=== PATIENT | male | born 1975 | race Caucasian/White ===

== ENCOUNTER 2025-01-04 22:39 | Inpatient (IN) | payer OTHER, SELFPAY ==
[2025-01-04 13:05] VITALS: BP 106/83
[2025-01-04 13:30] LABS: Hematocrit 44.3 % (39.0-52.0); Hemoglobin 15.0 g/dL (13.0-18.0); Mean Corp Hgb Conc. 33.9 g/dL (33.0-37.0); Mean Corpuscular Volume 81.0 fL (80.0-94.0); Nucleated Red Blood Cells % 0 % (-); Platelet Count 155 10^3/uL (130-400); Red Cell Dist. Width 12.3 % (11.5-14.5)
[2025-01-04 13:57] LABS: ALT (SGPT) 19 U/L (0-50); AST (SGOT) 24 U/L (17-59); Albumin 3.8 g/dl (3.5-5.0); Alkaline Phosphatase 119 U/L (38-126); Blood Urea Nitrogen 16 mg/dl (9-20); Calcium 9.1 mg/dl (8.4-10.2); Carbon Dioxide 29 mmol/L (22-30); Chloride 98 mmol/L (98-107); Glucose 104 mg/dl (70-99); Potassium 4.1 mmol/L (3.5-5.1); Sodium 131 mmol/L (135-145); Total Protein 6.7 g/dl (6.3-8.2); eGFR > 60.00
[2025-01-04 19:26] VITALS: BMI 25.7
--- NOTE | 2025-01-04 19:28 | ED.GENMED ---
History of Present Illness
General
Chief Complaint: Skin Problem
Source: patient
Exam Limitations: none
Time Seen by Provider: 01/04/25 18:11
Nursing documentation reviewed up to this point in time: agreed with
History of Present Illness
History of Present Illness:
Patient to ED with complaint of pain, redness, swelling to RLE. Symptoms started on Saturday. Now notes erythema is extending up into thigh. Reports chills. Did not take temp. No history of trauma. No prior history of same. [place] self to ED
for eval.
Past History
Past History
ED Past Medical History: None
ED Past Surgical History: None
Social History
Tobacco: Vaping
Personal: Single
Living: with family
Employment: Employed
Review of Systems
Review of Systems
Allergies reviewed?: Yes
All Other Systems: ROS reviewed and negative except as documented in HPI and ROS
Constitutional: Reports no symptoms
EENT: Reports no symptoms
Respiratory: Reports no symptoms
Cardiac: Reports no symptoms
ABD/GI: Reports no symptoms
: Reports no symptoms
Musculoskeletal: Reports other (erythema swellling, pain RLE )
Skin: Reports other (erythema, swelling, pain RLE)
Neurological: Reports no symptoms
Psychiatric: Reports no symptoms
Phy Exam
General Physical Exam
General Presentation: mild distress
General age: appears stated age
General Skin: warm and dry
General Habitus: normal
Cardiovascular Exam
Cardiovascular Exam: regular rate/rhythm
Pulmonary Exam
Pulmonary Exam: lungs clear and no respiratory distress
Gastrointestinal Exam
Gastrointestinal Exam: normal bowel sounds, non tender, soft and no organomegaly
Musculoskeletal Exam
Musculoskeletal Exam: full ROM and neuro vasc intact
Skin Exam
Skin Exam: warm/dry and other (erythema RLE ankle to knee. Now with steaking right thigh into groin,)
Psychiatric Exam
Psychiatric Exam: normal mood/affect
Course
Orders/Labs/Results
Orders:
Orders
01/04/25 13:10
Case Management Consult ONCE
Case Management Consult: Other
Requested By:: NURSING
Comment: Pt is currently homeless and living in his car. Pt no longer feels safe with this arrangement.
01/04/25 13:12
Complete Blood Count/With Diff Urgent
Comprehensive Metabolic Panel Urgent
01/04/25 Dinner
Regular
At Your Request: Full Participation
Does patient need a safe tray?: No
01/04/25 18:19
US Periph Venous LOWER Ext RT Urgent
Comment:
Reason For Exam: redness swelling pain
01/04/25 19:24
Vancomycin [Vancocin] 2,000 mg 0.9% Sodium Chloride 500 ml [Nss] 500 ml IV NOW
01/04/25 22:18
Admit/Transfer Patient As Directed
Co-Sign Provider:
Level of Care: Inpatient admission
Assign to:: Medical/Surgical
Physician / Group: andre
Diagnosis: cellulitis/lymphangitis
Reason for Hospitalization: cellulitis/lymphangitis
Expected length of stay greater than two midnights?: Yes
ELOS- Estimated Length of Stay in days: 2
I certify the patient meets the requirements for IP care: Yes
01/04/25 22:19
Code Status As Directed
Resuscitation Status: Full Code
PRN Pain Medication Management As Directed
May give lesser potent ordered pain med per pt: Yes
preference::
Protocol:: Medication orders for pain may be administered in a
manner that supports deferring to patient preference
when the pt is:
- Requesting an ordered lesser potent pain medication.
Least to most potent pain medications are defined
as: acetaminophen < NSAID < tramadol < opioids
(morphine, oxycodone, hydromorphone).
- Requesting a lesser dose of the same medication IF
ORDERED.
- Requesting a less intrusive route of administration
if both routes are prescribed by the provider (PO <
IV).
01/04/25 22:34
Vancomycin [Vancocin] 2,000 mg 0.9% Sodium Chloride 500 ml [Nss] 500 ml IV NOW
01/04/25 23:04
Acetaminophen [Tylenol] 650 mg PO Q4HPRN PRN
01/04/25 23:04
Activity As Directed
Activity Level: As Tolerated
Vital Signs As Directed
Frequency: Per unit guidelines
DX Deep Vein Thrombosis Video Routine
01/05/25 00:00
CeFAZolin 2 GRAM [Ancef] 2 grams in 10 ml IV Q8H
01/05/25 05:48
Complete Blood Count/With Diff IN AM
Comprehensive Metabolic Panel IN AM
01/05/25 08:00
Heparin 5,000 units SC Q12
Abnormal Lab Results
01/04/25
13:12
WBC 11.1 H 10^3/uL
(4.8-10.8)
Abs Immat Gran (auto) 0.1 H 10^3/uL
(0-0.05)
Absolute Neuts (auto) 8.0 H 10^3/uL
(1.4-6.5)
Absolute Monos (auto) 1.1 H 10^3/uL
(0.1-0.6)
Immature Gran % 0.6 H %
(0-0.5)
Lymphocytes % 17.3 L %
(20.5-51.1)
Monocytes % 9.7 H %
(1.7-9.3)
Sodium 131 L mmol/L
(135-145)
Glucose 104 H mg/dl
(70-99)
01/04/25 13:12
01/04/25 13:12
Vital Signs
Initial and Last Documented VS:
Initial Vital Signs
Temp Pulse Resp BP Pulse Ox
98.1 F 100 18 106/83 95
01/04/25 13:05 01/04/25 13:05 01/04/25 13:05 01/04/25 13:05 01/04/25 13:05
Last Documented Vital Signs
Temp Pulse Resp BP Pulse Ox
98.3 F 77 18 127/75 97
01/05/25 15:46 01/05/25 15:46 01/05/25 15:46 01/05/25 15:46 01/05/25 15:46
*Radiology
Radiology exam reviewed: radiology read reviewed
*Pulse Oximetry
SaO2: 95
Oxygen Mode of Delivery: Room air
Patient hypoxic: no
*Critical Care Note
Total Time (30-74mins, 75-104mins- exclusive of procedures): Not Applicable
Update Note
Update Note:
Patient to ED wtih increasing redness swelling and pain to RLE since saturday. Reports chillls. RLE with erythema from ankle to knee, streaking into right thigh. Neurovasc intact. Afebrile in ED. WBC 11 noted. No wouonds on leg. No drainage.
US neg for DVT. Recommend admission for IV antibiotics. Discussed this with him and he is agreeable to plan. WIll admit to hospitalist
ED Attending Note
-
Portions of this chart may have been created with voice recognition software.� Occasional wrong word or��sound alike� substitutions may have occurred due to the inherent limitations of voice recognition software.
Discharge Plan
Departure
Date of Disposition: 01/04/25
Time of Disposition: 19:32
Presentation/result/management discussed w/ accepting MD/DO: Hospitalist
Condition: Fair
Covid-19: Not Applicable
Discharge Problem:
Cellulitis of leg, right
Interventions
Interventions:
*Risk Screen - Suicide Last Done: 01/04/25 13:05
*General Assessment Last Done: 01/04/25 13:05
*Neglect/Abuse Screening Last Done: 01/04/25 13:05
*ED- Fall Risk Assessment Last Done: 01/04/25 20:57
*ED COVID-19 Vaccine History Last Done: 01/04/25 20:57
*Nursing Disposition Last Done: 01/04/25 20:57
ED-Skin Assessment Last Done: 01/04/25 18:24
--- NOTE | 2025-01-04 22:20 | HPS.HSE ---
Family Physician
-
Family Physician: Bart Rucker
Chief Complaint
-
right leg pain
History of Present Illness
49-year-old male without past medical history of presenting with pain, redness and swelling of the right lower extremity. Symptoms started 3 days ago. Now the redness is extending up to the thigh. He has chills. Denies fever. Denies any trauma
to the leg or bug bites.
Denies smoking, alcohol or drugs.
Medical History
Past Medical History
Past Medical History: Reports None and Other
Past Surgical History: Reports Other (Appendectomy)
Social History
Tobacco: Non-smoker
Alcohol: None
Drug: None
Family History
Family History: Not pertinent
Allergies / Home Medications
Allergies reflects when Allergies were last updated in [facility].
Home Medications with original date entered in [facility]
Allergy/Medication List:
Allergies
Allergy/AdvReac Type Severity Reaction Status Date / Time
No Known Allergies Allergy Unverified 01/04/25 13:05
Home Medications
No Meds [No Current Medications] 07/11/22
Review of Systems
-
Constitutional: Reports No Symptoms
EENT: Reports No Symptoms
Respiratory: Reports No Symptoms
Cardiac: Reports No Symptoms
Abdomen/GI: Reports No Symptoms
: Reports No Symptoms
Musculoskeletal: Reports No Symptoms
Skin: Reports See HPI
Neurological: Reports No Symptoms
Endocrine: Reports No Symptoms
Hematologic/Lymphatic: Reports No Symptoms
Psych: Reports No Symptoms
Physical Exam
Vital Signs
Vital Signs
Temp Pulse Resp BP Pulse Ox
98.1 F 100 16 106/83 95
01/04/25 13:05 01/04/25 13:05 01/04/25 19:26 01/04/25 13:05 01/04/25 19:34
Physical Exam
General: Well Developed, Well Nourished and No Apparent Distress
HEENT: NormoCephalic, Moist mucous membranes and Atraumatic
Respiratory: Clear
Cardiac: S1/S2 and Regular Rhythm; No Murmur or Rub
GI: Soft, Non Tender, Non Distended and Normal Bowel Sounds; No Organomegaly
Rectal: Deferred by Provider
Musculoskeletal: No Clubbing, No Cyanosis and No Edema
Skin: Other (right leg redness, erythema and swelling ); No Rash
Neuro: Nonfocal/grossly intact
Laboratory Results
-
01/04/25 13:12
01/04/25 13:12
Laboratory Results
Total Bilirubin 1.3 mg/dl (0.2-1.3) 01/04/25 13:12
AST 24 U/L (17-59) 01/04/25 13:12
ALT 19 U/L (0-50) 01/04/25 13:12
Alkaline Phosphatase 119 U/L (38-126) 01/04/25 13:12
Data Reviewed
-
Lab Data: Labs Reviewed by me
Old Records: Reviewed
Impression/Plan
-
IMPRESSION:
PLAN:
# Right lower extremity cellulitis/lymphangitis
-Leukocytosis
-Venous ultrasound negative for DVT
-Ancef
Full Code
DVT ppx-heparin
Regular diet
[2025-01-04 22:40] VITALS: BP 123/78
[2025-01-04] MEDS: VANCOCIN 540 MG IV (23:11)
[2025-01-04] MEDS: ANCEF 10 IV (23:19)
[2025-01-05] MEDS: TYLENOL 650 MG PO (05:51)
[2025-01-05 06:38] LABS: Hematocrit 39.0 % (39.0-52.0); Hemoglobin 13.2 g/dL (13.0-18.0); Mean Corp Hgb Conc. 33.8 g/dL (33.0-37.0); Mean Corpuscular Volume 80.9 fL (80.0-94.0); Nucleated Red Blood Cells % 0 % (-); Platelet Count 129 10^3/uL (130-400); Red Cell Dist. Width 12.2 % (11.5-14.5)
[2025-01-05 07:09] LABS: ALT (SGPT) 13 U/L (0-50); AST (SGOT) 16 U/L (17-59); Albumin 2.8 g/dl (3.5-5.0); Alkaline Phosphatase 94 U/L (38-126); Blood Urea Nitrogen 14 mg/dl (9-20); Calcium 7.5 mg/dl (8.4-10.2); Carbon Dioxide 23 mmol/L (22-30); Chloride 107 mmol/L (98-107); Estimated Creatinine Clearance > 125 ml/min; Glucose 125 mg/dl (70-99); Potassium 3.3 mmol/L (3.5-5.1); Sodium 136 mmol/L (135-145); Total Protein 5.3 g/dl (6.3-8.2); eGFR > 60.00
[2025-01-05] MEDS: HEPARIN 5000 UNITS SC (07:51)
[2025-01-05] MEDS: ANCEF 10 IV ×2 (07:51→16:14)
[2025-01-05 08:29] VITALS: BP 106/71
[2025-01-05] MEDS: KCL 20 MEQ PO (10:13)
--- NOTE | 2025-01-05 13:18 | W.PN.HOSP.TC ---
Today's Communication/Plan
-
Monitor vital signs see plan
Continue with Ancef
Replete potassium
Assessment / Plan
Assessment / Plan
General: Well Developed, Well Nourished and No Apparent Distress
HEENT: NormoCephalic, Moist mucous membranes and Atraumatic
Respiratory: Clear
Cardiac: S1/S2 and Regular Rhythm; No Murmur or Rub
GI: Soft, Non Tender, Non Distended and Normal Bowel Sounds
Musculoskeletal:+ Edema
Skin: Other (right leg redness, erythema and swelling )
Neuro: Nonfocal/grossly intact
Right lower extremity cellulitis/lymphangitis
-Leukocytosis, improving
-Venous ultrasound negative for DVT
Continue with Ancef, hopeful transition to p.o. in next 24 hours
Hypokalemia
Replete
Full Code
DVT ppx-heparin
Anticipated Discharge: Within 24 hours
Subjective/Interval History
-
Date of Service: January 05, 2025
Denies nausea
Objective Data
-
Labs:
Laboratory Results
01/05/25
05:48
WBC 8.2
Hgb 13.2
Hct 39.0
Plt Count 129 L
Sodium 136
Potassium 3.3 L
Chloride 107
Carbon Dioxide 23
BUN 14
Creatinine 0.7
Glucose 125 H
Calcium 7.5 L D
Total Bilirubin 0.7
AST 16 L
ALT 13
Alkaline Phosphatase 94
Vital Signs:
Vital Signs
Temp Pulse Resp BP Pulse Ox
97.6 F 86 18 106/71 97
01/05/25 08:29 01/05/25 08:29 01/05/25 08:29 01/05/25 08:29 01/04/25 22:39
[2025-01-05 15:46] VITALS: BP 127/75
[2025-01-05 17:35] VITALS: BP 116/73; BMI 25.0
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
--- NOTE | 2025-01-06 08:35 | W.DCSUMMARY ---
Discharge Summary
Discharge Data
Date of Admission: 01/04/25
Date of Discharge: 01/05/25
-
Pending Results: Yes
Hospital Course
Discharge diagnosis
Right lower extremity cellulitis/lymphangitis
Hypokalemia
Hospital course
49-year-old male came to the hospital with right lower extremity swelling consistent with right lower extremity cellulitis/lymphangitis. Venous ultrasound was negative for DVT. Patient was started on IV Ancef which was improving his symptoms. On
01/05/2025 patient decided to leave AGAINST MEDICAL ADVICE. Risk of leaving AMA was discussed with the patient however he still wanted to leave AMA. As a courtesy patient was given prescription for oral Keflex and was instructed to follow-up with
his PCP closely outpatient.
Discharge Plan
-
Patient Disposition: Against Medical Advice
Referrals:
Bart Rucker DO [Family Provider, [facility]]
Prescriptions:
New
cephalexin 500 mg capsule
500 mg PO BID 7 Days Qty: 14 0RF
Discharge Date and Time
Discharge Date/Time: 01/05/25 18:15
Print Language: ESTONIAN
== END 2025-01-05 18:15 | disposition left against medical advice (07) | DRG 603 ==
LOC: 4 EAST ACU 22:39
PROVIDERS: Student in an Organized Health Care Education/Training Program; ADMITTING PHYSICIAN Hospitalist; ATTENDING PHYSICIAN Internal Medicine; EMERGENCY PHYSICIAN Emergency Medicine; FAMILY PHYSICIAN Family Medicine
DX: L03.115 Cellulitis of right lower limb (principal); Z59.02 Unsheltered homelessness; R22.41 Localized swelling, mass and lump, right lower limb; F17.290 Nicotine dependence, other tobacco product, uncomplicated; E87.6 Hypokalemia; Z53.29 Procedure and treatment not carried out because of patient's decision for other reasons
CPT/HCPCS: 80053; 85025; 93971